=== PATIENT | female | born 1990 | race Hispanic/Latino ===

== ENCOUNTER 2020-02-16 01:54 | Emergency (ER) | payer OTHER ==
[~2020-02-16] VITALS: Ht 165.1 cm; Wt 81.6 kg
[2020-02-16 01:56] VITALS: BP 137/93
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
[2020-02-16 02:21] LABS: BASOPHIL % 0.3 % (0.0-0.2); EOSINOPHIL # 0.1 10^3/uL (0.0-0.2); LYMPHOCYTES # 2.77 10^3/uL1 (1.0-4.8); LYMPHOCYTES % 40.8 % (24.0-44.0); MEAN CORP HGB 28.9 pg (26-34); MONOCYTES # 0.3 10^3/uL (0.3-0.8); MONOCYTES % 4.6 % (5.0-12.0); NEUTROPHIL # 3.6 10^3/uL (1.8-7.7); NEUTROPHILS % 53.3 % (41.0-85.0); PLATELET COUNT 266 10^3/uL (150-400); RED CELL DISTRIBUTION WIDTH 12.6 % (11.5-14.5)
[2020-02-16 02:37] LABS: CALCIUM 9.3 mg/dL (8.4-10.5); CARBON DIOXIDE 28.6 mmol/L (20.0-32)
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
[2020-02-16 03:00] VITALS: BP 133/70
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
[2020-02-16 03:21] VITALS: BP 151/88
== END 2020-02-16 03:36 | disposition home or self-care (01) ==
LOC: ER 01:54
DX: R10.30 Lower abdominal pain, unspecified (principal); M25.511 Pain in right shoulder; E87.6 Hypokalemia; R73.9 Hyperglycemia, unspecified; V49.9XXA Car occupant (driver) (passenger) injured in unspecified traffic accident, initial encounter; Y93.89 Activity, other specified; Y92.488 Other paved roadways as the place of occurrence of the external cause; Y99.8 Other external cause status
CPT/HCPCS: 36415; 73030; 74177; 80053; 81025; 82150; 83690; 85025; 99285; Q9965